=== PATIENT | female | born 1945 | race Caucasian/White ===

== ENCOUNTER 2022-09-29 23:06 | Emergency (ER) | payer OTHER ==
[~2022-09-29] VITALS: Ht 162.6 cm; Wt 77.3 kg
[2022-09-29] MEDS ORDERED: ONDANSETRON HCL 4 MG/2 ML VIAL IV ONE (23:30)
[2022-09-29] MEDS ORDERED: OXYCODONE W/ ACETAMINOPHEN 5/325MG TABLET PO ONE (23:30)
[2022-09-29 23:47] LABS: Basophils # (auto) 0.1 10 ^3/uL (0-0.2); Eosinophils # (auto) 0.1 10 ^3/uL (0-0.8); Eosinophils % (auto) 0.8 % (0.0-7.0); Hemoglobin 9.1 g/dL (12.2-16.2); Lymphocytes # (auto) 1.4 10 ^3/uL (0.4-5.4); Lymphocytes % (auto) 12.7 % (10.0-50.0); Monocytes # (auto) 1.2 10 ^3/uL (0-1.3)
[2022-09-29 23:48] LABS: Basophils % (auto) 0.6 % (0.0-2.0); Hematocrit 25.9 % (36.0-46.0); Mean Corpuscular Hemoglobin 32.5 pg (28.0-32.0); Mean Corpuscular Hgb Conc. 35.2 g/dL (32.0-36.0); Mean Corpuscular Volume 92.3 fL (80.0-100.0); Monocytes % (auto) 10.5 % (0.0-12.0); Neutrophils # (auto) 8.5 10 ^3/uL (1.6-8.6); Neutrophils % (auto) 75.4 % (37.0-80.0); Red Cell Distribution Width 12.8 % (11.8-14.3); White Blood Cell 11.3 10^3/uL (4.4-10.8)
[2022-09-30 00:02] LABS: Albumin 2.7 g/dL (3.4-5.0); Calcium 8.5 mg/dL (8.5-10.1); Potassium 3.7 mmol/L (3.5-5.1)
[2022-09-30 00:03] LABS: BUN/Creatinine Ratio 20.3 (10.0-20.0)
[2022-09-30 00:07] LABS: Bilirubin, Total 0.6 mg/dL (0.2-1.0); Total Protein 7.2 g/dL (6.4-8.2)
[2022-09-30] MEDS ORDERED: ONDANSETRON HCL 4 MG/2 ML VIAL IV ONE ×2 (00:30→03:15)
[2022-09-30] MEDS ORDERED: MORPHINE SULFATE 4 MG/ML SYR/VIAL IV ONE (00:30)
[2022-09-30 01:56] LABS: INR 1.02 (0.9-1.15)
[2022-09-30] MEDS ORDERED: HYDROmorphone HCL 2 MG/ML VL/or syr IV ONE (03:15)
[2022-09-30 05:53] VITALS: BP 109/58
== END 2022-09-30 06:05 | disposition home or self-care (01) ==
LOC: EDBD 23:06 → ER 23:06
DX: S73.004A Unspecified dislocation of right hip, initial encounter (principal); E86.0 Dehydration; E87.1 Hypo-osmolality and hyponatremia; R79.89 Other specified abnormal findings of blood chemistry; R06.02 Shortness of breath; W18.39XA Other fall on same level, initial encounter; Y93.89 Activity, other specified; Y92.89 Other specified places as the place of occurrence of the external cause; Y99.8 Other external cause status
CPT/HCPCS: 36415; 71045; 72170; 80053; 85025; 85610; 85730; 96374; 96375; 96376; 99285; J1170; J2270; J2405

== ENCOUNTER 2024-03-27 18:08 | Inpatient (IN) | payer OTHER, MEDICAID ==
[~2024-03-27] VITALS: Ht 165.1 cm; Wt 54.5 kg
[2024-03-27 18:24] VITALS: PULSE 100; RESP 17; O2SAT 95
[2024-03-27] MEDS: ONDANSETRON HCL 4 MG/2 ML VIAL IV ONE (18:55)
[2024-03-27] MEDS: MORPHINE SULFATE 4 MG/ML SYR/VIAL IV ONE ×2 (18:55→21:17)
[2024-03-27] MEDS: SODIUM CHLORIDE 0.9% 1,000 ML IV ONE ×2 (18:55→22:20)
[2024-03-27 19:19] LABS: Basophils # (auto) 0 10 ^3/uL (0-0.2); Basophils % (auto) 0.2 % (0.0-2.0); Eosinophils # (auto) 0 10 ^3/uL (0-0.8); Eosinophils % (auto) 0.6 % (0.0-7.0); Hematocrit 33.4 % (36.0-46.0); Hemoglobin 11.3 g/dL (12.2-16.2); Lymphocytes # (auto) 1.2 10 ^3/uL (0.4-5.4); Lymphocytes % (auto) 19.1 % (10.0-50.0); Mean Corpuscular Hemoglobin 33.3 pg (28.0-32.0); Mean Corpuscular Hgb Conc. 33.9 g/dL (32.0-36.0); Mean Corpuscular Volume 98.3 fL (80.0-100.0); Monocytes # (auto) 0.8 10 ^3/uL (0-1.3); Monocytes % (auto) 13.1 % (0.0-12.0); Neutrophils # (auto) 4.2 10 ^3/uL (1.6-8.6); Platelet Count (auto) 240 10^3/uL (140-450); Red Blood Cells 3.39 10^6/uL (4.0-5.20); White Blood Cell 6.3 10^3/uL (4.4-10.8)
[2024-03-27 19:27] LABS: Chloride 107 mmol/L (98-107); Potassium 3.8 mmol/L (3.5-5.1); Sodium 138 mmol/L (136-145)
[2024-03-27 19:28] LABS: Anion Gap 4 (5-15); Calcium 8.2 mg/dL (8.7-10.4); Carbon Dioxide 27 mmol/L (20-30)
[2024-03-27 19:33] LABS: BUN/Creatinine Ratio 21.6 (10.0-20.0); Blood Urea Nitrogen 16 mg/dL (9-23); Glucose 94 mg/dL (74-106)
[2024-03-27] MEDS: PROPOFOL 10 MG/ML 20 ML IV ONE ×2 (21:32→21:55)
[2024-03-28] MEDS: MORPHINE SULFATE 4 MG/ML SYR/VIAL IV ONE (00:38)
[2024-03-28] MEDS: LORazepam 2MG/ML-1ML VIAL IV ONE ×2 (02:59→23:21)
[2024-03-28] MEDS ORDERED: ONDANSETRON HCL 4 MG/2 ML VIAL IV PRN (04:30)
[2024-03-28] MEDS ORDERED: DOCUSATE SOD 100 MG CAP PO PRN (04:30)
[2024-03-28] MEDS ORDERED: MORPHINE SULFATE INJ 2 MG/ml SYRG IV PRN (04:30)
[2024-03-28] MEDS ORDERED: diphenhdrAMINE HCL 50 MG/1 ML VL IV PRN (04:30)
[2024-03-28] MEDS ORDERED: NITROGLYCERIN 0.4 MG SL TAB SL PRN (04:30)
[2024-03-28] MEDS ORDERED: ACETAMINOPHEN 325 MG TAB PO PRN (04:30)
[2024-03-28] MEDS: SODIUM CHLORIDE 0.9% 1,000 ML IV SCH (05:04)
[2024-03-28 05:19] LABS: Basophils # (auto) 0 10 ^3/uL (0-0.2); Basophils % (auto) 0.4 % (0.0-2.0); Eosinophils # (auto) 0 10 ^3/uL (0-0.8); Eosinophils % (auto) 0.7 % (0.0-7.0); Hemoglobin 11.1 g/dL (12.2-16.2); Lymphocytes % (auto) 18.9 % (10.0-50.0); Mean Corpuscular Hemoglobin 33.7 pg (28.0-32.0); Mean Corpuscular Hgb Conc. 34.7 g/dL (32.0-36.0); Mean Corpuscular Volume 97.1 fL (80.0-100.0); Monocytes # (auto) 0.7 10 ^3/uL (0-1.3); Monocytes % (auto) 12.3 % (0.0-12.0); Neutrophils # (auto) 3.8 10 ^3/uL (1.6-8.6); Neutrophils % (auto) 67.7 % (37.0-80.0); Platelet Count (auto) 205 10^3/uL (140-450); Red Blood Cells 3.29 10^6/uL (4.0-5.20); Red Cell Distribution Width 12.9 % (11.8-14.3); White Blood Cell 5.6 10^3/uL (4.4-10.8)
[2024-03-28 05:37] LABS: Alanine Aminotransferase 15 U/L (7-40); Albumin 3.5 g/dL (3.2-4.8); Alkaline Phosphatase 73 U/L (46-116); Anion Gap 4 (5-15); Aspartate Aminotransferase 38 U/L (13-40); BUN/Creatinine Ratio 20.3 (10.0-20.0); Bilirubin, Total 0.8 mg/dL (0.2-1.0); Blood Urea Nitrogen 13 mg/dL (9-23); Calcium 8.6 mg/dL (8.7-10.4); Carbon Dioxide 26 mmol/L (20-30); Chloride 107 mmol/L (98-107); Glucose 111 mg/dL (74-106); Potassium 3.8 mmol/L (3.5-5.1); Sodium 137 mmol/L (136-145)
[2024-03-28 05:38] LABS: Total Protein 5.9 g/dL (5.7-8.2)
[2024-03-28 08:01] VITALS: BP 99/60; PULSE 98; RESP 16; TEMP 99.9; O2SAT 94
[2024-03-28] MEDS: FAMOTIDINE (10MG/ML) 2ML VL IV SCH (09:44)
[2024-03-28] MEDS: ENOXAPARIN SOD 40 MG/0.4 ML SYRINGE SC SCH (09:44)
[2024-03-28] MEDS: MORPHINE SULFATE INJ 2 MG/ml SYRG IV PRN (12:02)
[2024-03-28 13:00] VITALS: BP 104/58; PULSE 97; RESP 14; TEMP 98.2; O2SAT 99
[2024-03-28] MEDS: HYDROcodone-ACET 5/325MG TAB PO PRN (14:50)
[2024-03-28 17:00] VITALS: BP 116/71; PULSE 101; RESP 15; TEMP 98.7
[2024-03-28 18:43] LABS: Folate (Folic Acid) 11.4 ng/mL (>5.38)
[2024-03-28 20:00] VITALS: PULSE 102; RESP 18; O2SAT 96
[2024-03-28 21:00] VITALS: BP 111/52; PULSE 104; RESP 15; TEMP 98.7; O2SAT 94
[2024-03-28] MEDS: DONEPEZIL HYDROCHLORIDE 5 MG TAB PO SCH (22:00)
[2024-03-29] VITALS (7 sets, daily range): BP systolic 108–146; BP diastolic 51–87; PULSE 61–111; RESP 15–19; TEMP 97.7–98.2; O2SAT 93–96
[2024-03-29 06:07] LABS: Basophils # (auto) 0 10 ^3/uL (0-0.2); Mean Corpuscular Hemoglobin 34.6 pg (28.0-32.0); Monocytes # (auto) 0.6 10 ^3/uL (0-1.3); Neutrophils # (auto) 3.5 10 ^3/uL (1.6-8.6); Nucleated Red Blood Cells % 0.1 %
[2024-03-29 06:14] LABS: Basophils % (auto) 0.2 % (0.0-2.0); Eosinophils # (auto) 0 10 ^3/uL (0-0.8); Eosinophils % (auto) 0.9 % (0.0-7.0); Hematocrit 29.8 % (36.0-46.0); Hemoglobin 10.7 g/dL (12.2-16.2); Lymphocytes # (auto) 0.7 10 ^3/uL (0.4-5.4); Mean Corpuscular Hgb Conc. 35.8 g/dL (32.0-36.0); Mean Corpuscular Volume 96.7 fL (80.0-100.0); Monocytes % (auto) 12.1 % (0.0-12.0); Neutrophils % (auto) 71.8 % (37.0-80.0); Platelet Count (auto) 204 10^3/uL (140-450); Red Blood Cells 3.08 10^6/uL (4.0-5.20); Red Cell Distribution Width 12.6 % (11.8-14.3); White Blood Cell 4.9 10^3/uL (4.4-10.8)
[2024-03-29 06:26] LABS: INR 1.09 (0.9-1.15); Partial Thromboplastin Time 37.4 SEC (24.5-34.5); Prothrombin Time 11.5 sec (9.3-11.8)
[2024-03-29 06:27] LABS: Alanine Aminotransferase 16 U/L (7-40); Albumin 3.5 g/dL (3.2-4.8); Alkaline Phosphatase 71 U/L (46-116); Anion Gap 9 (5-15); Aspartate Aminotransferase 37 U/L (13-40); BUN/Creatinine Ratio 14.3 (10.0-20.0); Blood Urea Nitrogen 9 mg/dL (9-23); Calcium 8.8 mg/dL (8.7-10.4); Carbon Dioxide 24 mmol/L (20-30); Chloride 104 mmol/L (98-107); Glucose 85 mg/dL (74-106); Potassium 3.2 mmol/L (3.5-5.1); Sodium 137 mmol/L (136-145)
[2024-03-29 06:28] LABS: Total Protein 5.9 g/dL (5.7-8.2)
[2024-03-29] MEDS: POTASSIUM CHL 20 Meq TABLET PO ONE (16:18)
[2024-03-29 18:23] LABS: Urine Bacteria None Seen /hpf (None Seen)
[2024-03-29 18:34] LABS: Urine Blood 1+ /uL (Negative); Urine Clarity Clear (Clear); Urine Color Light-Yellow (Yellow); Urine Protein, UAD TRACE (Negative); Urine Specific Gravity 1.012 (1.001-1.035); Urine Urobilinogen Normal (Negative); Urine WBC 1 /hpf (0 - 5); Urine pH 5.5 (5.0-9.0)
[2024-03-29] MEDS ORDERED: OXY5T GT (22:22)
[2024-03-29] MEDS ORDERED: OXYC15TA77 PO (22:45)
[2024-03-29] MEDS ORDERED: DONE5TAB80 PO (22:52)
[2024-03-30] VITALS (10 sets, daily range): BP systolic 110–143; BP diastolic 60–85; PULSE 84–124; RESP 16–18; TEMP 97.7–98.6; O2SAT 92–97
[2024-03-30 05:53] LABS: Basophils # (auto) 0 10 ^3/uL (0-0.2); Eosinophils # (auto) 0.1 10 ^3/uL (0-0.8); Eosinophils % (auto) 1.6 % (0.0-7.0); Hemoglobin 10.7 g/dL (12.2-16.2); Lymphocytes # (auto) 1.1 10 ^3/uL (0.4-5.4); Platelet Count (auto) 237 10^3/uL (140-450); Red Blood Cells 3.13 10^6/uL (4.0-5.20); White Blood Cell 5.5 10^3/uL (4.4-10.8)
[2024-03-30 05:55] LABS: Basophils % (auto) 0.2 % (0.0-2.0); Hematocrit 30.1 % (36.0-46.0); Lymphocytes % (auto) 20.7 % (10.0-50.0); Mean Corpuscular Hemoglobin 34.2 pg (28.0-32.0); Mean Corpuscular Hgb Conc. 35.5 g/dL (32.0-36.0); Mean Corpuscular Volume 96.4 fL (80.0-100.0); Monocytes # (auto) 0.7 10 ^3/uL (0-1.3); Neutrophils # (auto) 3.6 10 ^3/uL (1.6-8.6); Neutrophils % (auto) 65.5 % (37.0-80.0); Red Cell Distribution Width 12.6 % (11.8-14.3)
[2024-03-30 05:58] LABS: Chloride 106 mmol/L (98-107); Potassium 3.3 mmol/L (3.5-5.1); Sodium 139 mmol/L (136-145)
[2024-03-30 05:59] LABS: Anion Gap 8 (5-15); Calcium 8.8 mg/dL (8.7-10.4); Carbon Dioxide 25 mmol/L (20-30)
[2024-03-30 06:04] LABS: BUN/Creatinine Ratio 16.7 (10.0-20.0); Blood Urea Nitrogen 10 mg/dL (9-23); Glucose 95 mg/dL (74-106)
[2024-03-30] MEDS: POTASSIUM EFFERVESENT TAB 25 MEQ PO ONE (07:00)
[2024-03-30] MEDS ORDERED: PROPOFOL 10 MG/ML 20 ML IV ONE (08:50)
[2024-03-30] MEDS ORDERED: KETAMINE 50mg/ML 1ml syringe ONE (08:50)
[2024-03-30] MEDS ORDERED: MIDAZOLAM HCL 2MG/2ML 2ml VIAL (1mg/ml) ONE (08:50)
[2024-03-30] MEDS ORDERED: GLYCOPYRROLATE 0.2 MG/ML 1ML VIAL ONE (08:50)
[2024-03-30] MEDS ORDERED: ONDANSETRON HCL 4 MG/2 ML VIAL ONE (08:50)
[2024-03-30] MEDS ORDERED: HYDROmorphone HCL 2 MG/ML VL/or syr IV PRN (09:45)
[2024-03-30] MEDS ORDERED: fentaNYL CITRATE 100 MCG/2 ML VL ONE (09:45)
[2024-03-30] MEDS ORDERED: fentaNYL CITRATE 100 MCG/2 ML VL IV PRN (09:45)
[2024-03-30] MEDS: fentaNYL CITRATE 100 MCG/2 ML VL IV ONE (09:47)
[2024-03-30] MEDS: ERGOCALCIFEROL 50,000 UNIT(1.25MG) CAP PO SCH (12:11)
[2024-03-30] MEDS: CYANOCOBALAMIN (B-12) 1000 MCG/1 ML VIAL IM ONE (12:12)
[2024-03-30] MEDS: POTASSIUM CHLORIDE 20 MEQ, LIDOCAINE 1% (LOCAL ANESTH.) 2 ML in SODIUM CHL 0.9% 100 ML IV ONE (13:29)
[2024-03-30] MEDS: VENLAFAXINE HCL 37.5MG TABLET PO ONE (13:56)
[2024-03-30] MEDS: oxyCODONE ER 20 MG TAB PO ONE (17:21)
[2024-03-31] VITALS (7 sets, daily range): BP systolic 97–126; BP diastolic 52–63; PULSE 90–94; RESP 17–18; TEMP 97.6–98.6; O2SAT 91–95
[2024-03-31] MEDS: oxyCODONE ER 10 MG TAB PO ONE (06:08)
[2024-03-31 07:01] LABS: Basophils # (auto) 0 10 ^3/uL (0-0.2); Eosinophils # (auto) 0.2 10 ^3/uL (0-0.8); Neutrophils # (auto) 2.7 10 ^3/uL (1.6-8.6); White Blood Cell 4.6 10^3/uL (4.4-10.8)
[2024-03-31 07:03] LABS: Basophils % (auto) 0.6 % (0.0-2.0); Eosinophils % (auto) 4.2 % (0.0-7.0); Hematocrit 28.7 % (36.0-46.0); Hemoglobin 9.9 g/dL (12.2-16.2); Lymphocytes # (auto) 1.2 10 ^3/uL (0.4-5.4); Lymphocytes % (auto) 25.4 % (10.0-50.0); Mean Corpuscular Hemoglobin 33.6 pg (28.0-32.0); Mean Corpuscular Hgb Conc. 34.4 g/dL (32.0-36.0); Mean Corpuscular Volume 97.6 fL (80.0-100.0); Monocytes # (auto) 0.6 10 ^3/uL (0-1.3); Monocytes % (auto) 11.9 % (0.0-12.0); Neutrophils % (auto) 57.9 % (37.0-80.0); Nucleated Red Blood Cells % 0.1 %; Platelet Count (auto) 247 10^3/uL (140-450); Red Blood Cells 2.94 10^6/uL (4.0-5.20); Red Cell Distribution Width 12.6 % (11.8-14.3)
[2024-03-31 07:14] LABS: Anion Gap 9 (5-15); Carbon Dioxide 25 mmol/L (20-30); Chloride 107 mmol/L (98-107); Potassium 3.6 mmol/L (3.5-5.1); Sodium 141 mmol/L (136-145)
[2024-03-31 07:16] LABS: Calcium 8.7 mg/dL (8.7-10.4)
[2024-03-31 07:20] LABS: BUN/Creatinine Ratio 14.1 (10.0-20.0); Blood Urea Nitrogen 9 mg/dL (9-23); Glucose 91 mg/dL (74-106)
[2024-03-31] MEDS ORDERED: VENL75CA78 PO (08:19)
[2024-03-31 08:55] LABS: Hepatitis B Surface Antigen Negative (Negative)
[2024-03-31 09:17] LABS: Hepatitis C Antibody Negative (Negative)
[2024-04-01] VITALS (8 sets, daily range): BP systolic 107–135; BP diastolic 62–78; PULSE 62–91; RESP 18–19; TEMP 97.3–98; O2SAT 91–95
[2024-04-01 07:38] LABS: Basophils # (auto) 0 10 ^3/uL (0-0.2); Basophils % (auto) 0.6 % (0.0-2.0); Eosinophils # (auto) 0.1 10 ^3/uL (0-0.8); Eosinophils % (auto) 3.3 % (0.0-7.0); Hemoglobin 10.5 g/dL (12.2-16.2); INR 1.02 (0.9-1.15); Lymphocytes # (auto) 0.8 10 ^3/uL (0.4-5.4); Lymphocytes % (auto) 18.8 % (10.0-50.0); Mean Corpuscular Hemoglobin 33.6 pg (28.0-32.0); Mean Corpuscular Hgb Conc. 34.9 g/dL (32.0-36.0); Mean Corpuscular Volume 96.3 fL (80.0-100.0); Monocytes # (auto) 0.4 10 ^3/uL (0-1.3); Monocytes % (auto) 10.3 % (0.0-12.0); Neutrophils # (auto) 2.8 10 ^3/uL (1.6-8.6); Partial Thromboplastin Time 33.4 SEC (24.5-34.5); Platelet Count (auto) 280 10^3/uL (140-450); Prothrombin Time 10.8 sec (9.3-11.8); Red Blood Cells 3.11 10^6/uL (4.0-5.20); Red Cell Distribution Width 12.5 % (11.8-14.3); White Blood Cell 4.1 10^3/uL (4.4-10.8)
[2024-04-01 07:43] LABS: Calcium 9.1 mg/dL (8.7-10.4); Chloride 104 mmol/L (98-107); Potassium 3.2 mmol/L (3.5-5.1); Sodium 141 mmol/L (136-145)
[2024-04-01 07:44] LABS: Anion Gap 9 (5-15); Carbon Dioxide 28 mmol/L (20-30)
[2024-04-01 07:49] LABS: Glucose 98 mg/dL (74-106)
[2024-04-01 07:51] LABS: BUN/Creatinine Ratio 11.9 (10.0-20.0); Blood Urea Nitrogen 7 mg/dL (9-23)
[2024-04-01] MEDS: POTASSIUM CHL 20 Meq TABLET PO ONE (08:45)
[2024-04-01] MEDS: POTASSIUM CHLORIDE 40 MEQ, LIDOCAINE 1% (LOCAL ANESTH.) 4 ML in SODIUM CHL 0.9% 250 ML IV ONE (09:32)
[2024-04-01] MEDS ORDERED: OXYCODONE W/ ACETAMINOPHEN 5/325MG TABLET PO PRN (13:45)
[2024-04-01] MEDS: OXYCODONE W/ ACETAMINOPHEN 5/325MG TABLET PO PRN (14:22)
[2024-04-01] MEDS: oxyCODONE HCL 5MG TAB PO PRN (14:22)
[2024-04-01] MEDS ORDERED: oxyCODONE ER 20 MG TAB PO ONE (22:00)
[2024-04-01] MEDS: oxyCODONE ER 20 MG TAB PO SCH (22:26)
[2024-04-02] VITALS (9 sets, daily range): BP systolic 103–136; BP diastolic 55–81; PULSE 65–104; RESP 16–20; TEMP 97.5–97.8; O2SAT 93–100
[2024-04-02] MEDS ORDERED: GABAPENTIN 300 MG CAP PO ONE (06:45)
[2024-04-02] MEDS ORDERED: CELECOXIB 100 MG CAP PO ONE (06:45)
[2024-04-02] MEDS ORDERED: ACETAMINOPHEN IV 1000 MG/100ML (10MG/ML) IV ONE (06:45)
[2024-04-02] MEDS ORDERED: LIDOCAINE 1% INJ PF 5ML AMP ONE (07:04)
[2024-04-02] MEDS ORDERED: ONDANSETRON HCL 4 MG/2 ML VIAL ONE (07:04)
[2024-04-02] MEDS ORDERED: PROPOFOL 10 MG/ML 20 ML IV ONE (07:04)
[2024-04-02] MEDS ORDERED: KETOROLAC TROMETH 30 MG/ML 1ML VIAL ONE (07:04)
[2024-04-02] MEDS ORDERED: KETAMINE 50mg/ML 1ml syringe ONE (07:04)
[2024-04-02] MEDS ORDERED: GLYCOPYRROLATE 0.2 MG/ML 1ML VIAL ONE (07:04)
[2024-04-02] MEDS ORDERED: DexAMETHasone SOD PHOS 10MG/1ML VIAL INJ ONE (07:04)
[2024-04-02] MEDS ORDERED: ceFAZolin 2 GM/D5W100ml 100 ML IV ONE (07:14)
[2024-04-02] MEDS ORDERED: SUCCINYLCHOLINE CHLORIDE 20 MG/ML 10ML VIAL IV ONE (07:47)
[2024-04-02 08:14] LABS: Anion Gap 9 (5-15); Carbon Dioxide 28 mmol/L (20-30); Chloride 104 mmol/L (98-107); Potassium 3.1 mmol/L (3.5-5.1); Sodium 141 mmol/L (136-145)
[2024-04-02 08:15] LABS: Calcium 9.1 mg/dL (8.7-10.4)
[2024-04-02 08:20] LABS: BUN/Creatinine Ratio 12.9 (10.0-20.0); Blood Urea Nitrogen 8 mg/dL (9-23); Glucose 93 mg/dL (74-106)
[2024-04-02] MEDS: LACTATED RINGER'S 1,000 ML IV SCH (10:27)
[2024-04-02] MEDS: POTASSIUM CHLORIDE 40 MEQ, LIDOCAINE 1% (LOCAL ANESTH.) 4 ML in SODIUM CHL 0.9% 250 ML IV ONE (18:08)
[2024-04-03] VITALS (8 sets, daily range): BP systolic 120–135; BP diastolic 57–80; PULSE 74–96; RESP 13–18; TEMP 97.6–98.6; O2SAT 94–97
[2024-04-03 06:54] LABS: Basophils # (auto) 0 10 ^3/uL (0-0.2); Basophils % (auto) 0.2 % (0.0-2.0); Eosinophils # (auto) 0 10 ^3/uL (0-0.8); Eosinophils % (auto) 0.1 % (0.0-7.0); Hematocrit 28.7 % (36.0-46.0); Hemoglobin 9.7 g/dL (12.2-16.2); Lymphocytes # (auto) 1.2 10 ^3/uL (0.4-5.4); Lymphocytes % (auto) 19.7 % (10.0-50.0); Mean Corpuscular Hemoglobin 32.9 pg (28.0-32.0); Mean Corpuscular Hgb Conc. 33.7 g/dL (32.0-36.0); Mean Corpuscular Volume 97.6 fL (80.0-100.0); Monocytes # (auto) 0.6 10 ^3/uL (0-1.3); Monocytes % (auto) 9.6 % (0.0-12.0); Neutrophils # (auto) 4.1 10 ^3/uL (1.6-8.6); Neutrophils % (auto) 70.4 % (37.0-80.0); Nucleated Red Blood Cells % 0.1 %; Platelet Count (auto) 339 10^3/uL (140-450); Red Blood Cells 2.94 10^6/uL (4.0-5.20); Red Cell Distribution Width 12.8 % (11.8-14.3); White Blood Cell 5.9 10^3/uL (4.4-10.8)
[2024-04-03 07:17] LABS: Anion Gap 8 (5-15); Carbon Dioxide 25 mmol/L (20-30); Chloride 107 mmol/L (98-107); Potassium 3.8 mmol/L (3.5-5.1); Sodium 140 mmol/L (136-145)
[2024-04-03 07:23] LABS: BUN/Creatinine Ratio 16.1 (10.0-20.0); Blood Urea Nitrogen 10 mg/dL (9-23); Glucose 95 mg/dL (74-106)
[2024-04-03] MEDS: CYANOCOBALAMIN (B-12) 1000 MCG/1 ML VIAL IM SCH (17:00)
[2024-04-04 00:40] VITALS: BP 134/76; PULSE 89; RESP 13; TEMP 97.8; O2SAT 96
[2024-04-04 04:36] VITALS: BP 150/75; PULSE 87; RESP 12; TEMP 97.8; O2SAT 98
[2024-04-04 07:51] LABS: Hematocrit 29.1 % (36.0-46.0); Hemoglobin 10.3 g/dL (12.2-16.2)
[2024-04-04 09:00] VITALS: BP 125/66; PULSE 90; RESP 18; TEMP 98.4; O2SAT 97
== END 2024-04-04 15:00 | disposition hospice, inpatient (51) | DRG 560 ==
LOC: ER 18:08 → EDBD 18:08 → TELE-WESTW 18:21 → TELE 03-28 04:34 → TELE-WESTW 03-28 08:12 → WEST WING 03-31 12:17
PROVIDERS: ADMIT Internal Medicine; ATTEND Internal Medicine
PROC: 0SSBXZZ Reposition Left Hip Joint, External Approach (ICD-10-PCS; 2024-03-27)
PROC: 0SSBXZZ Reposition Left Hip Joint, External Approach (ICD-10-PCS; principal; 2024-03-30 08:50)
PROC: 0SSBXZZ Reposition Left Hip Joint, External Approach (ICD-10-PCS; 2024-04-02)
DX: T84.021A Dislocation of internal left hip prosthesis, initial encounter (principal); F02.83 Dementia in other diseases classified elsewhere, unspecified severity, with mood disturbance; F32.A Depression, unspecified; D64.9 Anemia, unspecified; E87.6 Hypokalemia; E55.9 Vitamin D deficiency, unspecified; Z96.643 Presence of artificial hip joint, bilateral; E53.8 Deficiency of other specified B group vitamins; Y79.2 Prosthetic and other implants, materials and accessory orthopedic devices associated with adverse incidents; F41.9 Anxiety disorder, unspecified; G89.29 Other chronic pain; G30.9 Alzheimer's disease, unspecified; Z99.3 Dependence on wheelchair
CPT/HCPCS: 36415; 71045; 72170; 73501; 80048; 80053; 81001; 82306; 82607; 82746; 83735; 83880; 85014; 85018; 85025; 85610; 85730; 86803; 86850; 86900; 86901; 87340; 93005; 93306; 97163; A4565; G0378; J0131; J0330; J1100; J1885; J2001; J2250; J2405; J2704; J3490

== ENCOUNTER 2024-06-16 07:13 | Inpatient (IN) | payer MEDICARE, MEDICAID ==
[~2024-06-16] VITALS: Ht 165.1 cm; Wt 46.5 kg
[~2024-06-16 07:13] MED LIST: DONE5TAB80 PO; OXY5T GT; OXYC15TA77 PO; VENL75CA78 PO
[2024-06-16] MEDS: SODIUM CHLORIDE 0.9% 1,000 ML IV ONE (08:00)
--- NOTE | 2024-06-16 08:09 | ED.PDOC ---
History of Present Illness HPI Comments 78 y/o F, with a Hx of dementia, arthritis, chronic pain syndrome, and previous left-hip fracture, is BIBA for c/o left-hip pain s/p mechanical fall and injury, today. Per EMS report, patient is coming from home and was brought after daughter called, endorsing on patient having a fall, this morning, where she slid forward and landed on her buttocks after her wheelchair slipped underneath her. Patient, at time of assessment, is a poor historian and reports no recollection of events aside from her wheelchair slipping underneath her and her current chronic left-hip pain that has been exacerbated. Patient was found on scene with a blood glucose of 94 per EMS report. Patient endorses no additional symptoms at this time. 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 Chief Complaint: Fall Injury Time Seen by MD: 07:50 Primary Care Provider: LINDA Escobar Notes: Nurses Notes, Health And Safety Consultant Notes, Medications, Allergies Allergies: Coded Allergies: NO KNOWN ALLERGIES (Unverified , 03/27/24) Home Meds Reported Medications Venlafaxine Hcl (Venlafaxine Hcl Er) 75 Mg Cap, 1 CAP PO DAILY 03/31/24 Donepezil Hydrochloride (DONEPEZIL HCL) 5 Mg Tab, 5 MG PO DAILY@DINNER for 30 Days, MG 03/29/24 Oxycodone HCl (Oxycontin) 15 Mg Tab, 20 MG PO DAILY, TAB 03/29/24 Oxycodone Hcl (OXYCODONE HCL) 5 Mg Tb, 10 MG GT DAILY, TAB 03/29/24 Information Source: Patient, Emergency Med Personnel, [facility] Medical Record Mode of Arrival: EMS Severity: Moderate Timing: Hours Duration: Since onset Prehospital treatment: 12 Lead EKG, Accucheck, 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 Past Medical History PAST MEDICAL HISTORY: Anemia, Arthritis, Dementia Past Medical History (Other): chronic pain syndrome, Hx of previos left hip fracture Surgical History: Denies all surgeries OBEDIENCE TRAINER History: No Pertinent OBEDIENCE TRAINER History Family History Family History: Unknown Social History Smoker: Non-Smoker Alcohol: Denies ETOH Use Drugs: Denies Drug Use Lives In: Home, Assisted Care Other wheelchair use Musculoskeletal: reports: joint pain (left hip pain ) All Other Systems: Reviewed and Negative (negative unless otherwise stated in HPI) Physical Exam General Appearance: Moderate Distress, Thin HEENT: Normal ENT Inspection, PERRL/EOMI, NOT DONE (No facial asymmetry dry mucosa) Neck: Full Range of Motion, Non-Tender Respiratory: Lungs Clear, No Respiratory Distress, Normal Breath Sounds Cardiovascular: No Murmur, Normal Peripheral Pulses, Regular Rate/Rhythm Breast Exam: Deferred Gastrointestinal: No Organomegaly, Non Tender, No Pulsatile Mass, Normal Bowel Sounds, Soft Genitalia: Deferred Pelvic: Deferred Rectal: Deferred Extremities: Decreased range of motion, No pedal edema, Tender, Other (Left hip) Neurologic: Alert, Depressed Affect, Disoriented, No Motor Deficits Cerebellar Function: NOT DONE Reflexes: NOT DONE Skin: Dry, Normal Color, Warm Peripheral Pulses: 1+ carotid (R), 1+ carotid (L) Lymphatic: No Adenopathy Was a procedure done? Was a procedure done?: No Differential Dx Considerations may include: fracture, dislocation, contusions, bruising, musculoskeletal pain, chronic pain exacerbation X-Ray, Labs, Meds, VS Vital Signs Date Time Temp Pulse Resp B/P (MAP) Pulse Ox O2 Delivery O2 Flow Rate FiO2 06/16/24 10:07 91 14 96/66 06/16/24 09:31 77 16 95 Room Air* 0 21 06/16/24 09:24 67 16 121/65 06/16/24 09:19 67 16 95 Room Air 06/16/24 09:19 97.7 77 16 121/65 (83) 95 97.7 06/16/24 07:18 98.4 94 16 117/75 (89) 95 Lab Test 06/16/24 08:03 Range/Units White Blood Count 5.7 4.4-10.8 10^3/uL Red Blood Count 3.89 L 4.0-5.20 10^6/uL Hemoglobin 12.4 12.2-16.2 g/dL Hematocrit 36.9 36.0-46.0 % Mean Corpuscular Volume 94.8 80.0-100.0 fL Mean Corpuscular Hemoglobin 31.9 28.0-32.0 pg Mean Corpuscular Hemoglobin Concent 33.6 32.0-36.0 g/dL Red Cell Distribution Width 13.9 11.8-14.3 % Platelet Count 354 140-450 10^3/uL Mean Platelet Volume 7.1 6.9-10.8 fL Neutrophils (%) (Auto) 65.0 37.0-80.0 % Lymphocytes (%) (Auto) 21.5 10.0-50.0 % Monocytes (%) (Auto) 9.3 0.0-12.0 % Eosinophils (%) (Auto) 3.8 0.0-7.0 % Basophils (%) (Auto) 0.4 0.0-2.0 % Neutrophils # (Auto) 3.7 1.6-8.6 10 ^3/uL Lymphocytes # (Auto) 1.2 0.4-5.4 10 ^3/uL Monocytes # (Auto) 0.5 0-1.3 10 ^3/uL Eosinophils # (Auto) 0.2 0-0.8 10 ^3/uL Basophils # (Auto) 0 0-0.2 10 ^3/uL Nucleated Red Blood Cells 0.1 % Prothrombin Time 11.0 9.3-11.8 sec Prothrombin Time INR 1.04 0.9-1.15 Activated Partial Thromboplast Time 29.1 24.5-34.5 SEC Sodium Level 140 136-145 mmol/L Potassium Level 4.1 3.5-5.1 mmol/L Chloride Level 106 98-107 mmol/L Carbon Dioxide Level 29 20-31 mmol/L Anion Gap 5 5-15 Blood Urea Nitrogen 17 9-23 mg/dL Creatinine 0.80 0.550-1.02 mg/dL Glomerular Filtration Rate Calc 74 >90 mL/min BUN/Creatinine Ratio 21.3 H 10.0-20.0 Serum Glucose 108 H 74-106 mg/dL Calcium Level 10.0 8.7-10.4 mg/dL Magnesium Level 2.0 1.6-2.6 mg/dL Total Bilirubin 0.4 0.2-1.0 mg/dL Aspartate Amino Transferase (AST) 16 13-40 U/L Alanine Aminotransferase (ALT) 10 7-40 U/L Alkaline Phosphatase 119 H 46-116 U/L Troponin I High Sensitivity 3 L </=34 ng/L Total Protein 6.8 5.7-8.2 g/dL Albumin 4.0 3.2-4.8 g/dL Current Medications Medications (Trade) Dose Ordered Sig/Jerald Route Start Time Stop Time Status Last Admin Sodium Chloride 250 ml @ 250 mls/hr Q1H ONCE IV 06/16/24 08:00 06/16/24 08:59 DC 06/16/24 09:19 Morphine Sulfate 2 mg ONCE ONCE IV 06/16/24 08:00 06/16/24 08:01 DC 06/16/24 09:24 Ondansetron HCl (Zofran) 4 mg ONCE ONCE IV 06/16/24 08:00 06/16/24 08:01 DC 06/16/24 09:23 [place] [address] Ph: [phone] DIAGNOSTIC IMAGING Diagnostic Imaging Report : [id number] Signed PATIENT: SUKHDEV KHAN ACCT: [id number] UNIT: [id number] : 1945 LOC: ER ROOM / BED: / AGE / SEX: 78 / F ADM STATUS: REG ER SERVICE 0750 ORDERING PHYSICIAN: RON CLEARY MD PROCEDURE(s): PL2CT - PELVIS WO CONTRAST REASON: fall ORDER NUMBER(s): [id number], ACCESSION NUMBER(s): [id number] CLINICAL INFORMATION: 78 years old, Female; fall injury. TECHNIQUE: Axial CT images of the this were obtained without IV contrast. Coronal and sagittal reformatted images were obtained, reviewed, and stored. All CT scans at this medical facility are performed using dose modulation techniques as appropriate to a performed exam including the following: Automated exposure control was utilized; adjustment of the MA and/or KV according to patient size; and use of iterative reconstruction technique. CTDIvol = 18.23, 0.41, 0.07 mGy DLP = 650.4 mGy-cm COMPARISON: Radiographs dated 04/02/2024. FINDINGS: Motion artifact limits evaluation. Beam hardening artifact from the bilateral hip prosthesis also limits evaluation. Bilateral hip prostheses with dislocation of both hip prostheses, with the femoral head components positioned superiorly and posteriorly with respect to the acetabular cup positions. The right acetabular liner is seen adjacent to the displaced femoral head component of the prosthesis, as seen on the prior radiographs. There is deformity of the left acetabulum, likely sequela of old fracture with the acetabular cup compo nent of the left hip prosthesis eccentrically positioned, along the posterior aspect of the [place] acetabulum. There is severe thinning of the [place] right acetabulum with slight protrusion of the acetabular cup beyond the medial wall. No acute fracture visualized. Marked fatty atrophy of the right gluteal musculature and moderate fatty atrophy of the left gluteus minimus muscle. IMPRESSION: 1. Bilateral dislocated prosthesis as detailed above. 2. Chronic appearing deformity of the left acetabulum, likely sequela of fracture with eccentric positioning of the acetabular component of the left hip prosthesis. 3. No acute fracture visualized. 4. Additional findings as detailed above. ATED BY: CHAVA MCCORMACK DO DICTATED DATE/TIME: 06/16/24914 SIGNED BY: CHAVA MCCORMACK DO SIGNED DATE/TIME: 06/16/24914 CC: [place] [address] Ph: [phone] DIAGNOSTIC IMAGING Diagnostic Imaging Report : [id number] Signed PATIENT: SUKHDEV KHAN ACCT: [id number] UNIT: [id number] : 1945 LOC: ER ROOM / BED: / AGE / SEX: 78 / F ADM STATUS: REG ER SERVICE 9 ORDERING PHYSICIAN: RON CLEARY MD PROCEDURE(s): CXRP - CHEST PORTABLE REASON: fall ORDER NUMBER(s): [id number], ACCESSION NUMBER(s): [id number] CHEST RADIOGRAPH Indication: fall Technique: Single frontal view of the chest was obtained COMPARISON: XY CHEST XRAY 1 VIEW on DOS: 03/28/24, XY CHEST XRAY 1 VIEW on DOS: 09/29/22 FINDINGS: Lines and Tubes: None Lungs: Mild congestion Pleura: No effusion. No pneumothorax. Cardiomediastinal contours: Unremarkable Bones: Unremarkable IMPRESSION: Mild congestion ATED BY: CLAUDE ROUSE MD DICTATED DATE/TIME: 06/16/24903 SIGNED BY: CLAUDE ROUSE MD SIGNED DATE/TIME: 06/16/24903 CC: X-Ray, Labs, Meds, VS Comment Course in the emergency department eventful patient came in because of a fall forward and now she is complaining of left hip severe pain patient is known to have had dislocation to both ribs for a little while the right hips for maybe several years the left hips more so recently was attempted reduction was reduced but then dislocated again at this time the patient is in severe pain show there is a possibly that is she have injured her pelvis and she is unable to walk and her daughter at this time is unable to take care of her Chest x-ray is normal ekg CBC negative INR 1.04 CMP negative Troponin three Magnesium 2.0 [address] of pelvis shows dislocation superior dislocations to both hips prosthesis and an old acetabular fracture with some deformity At this time we will be admitting the patient have orthopedic evaluate and have this patient Time of 1ST Reevaluation: 08:20 Reevaluation 1ST: Unchanged Time of 2ND Reevaluation: 11:30 Reevaluation 2ND: Unchanged Patient Education/Counseling: Diagnosis, Treatment Family Education/Counseling: No Family Present Departure 1 Departure Time of Disposition: 11:32 Impression: Primary Impression: Fall at home Qualified Codes: W19.XXXA - Unspecified fall, initial encounter; Y92.009 - Unspecified place in unspecified non-institutional (private) residence as the place of occurrence of the external cause Additional Impressions: Dislocation of left hip Qualified Codes: S73.005A - Unspecified dislocation of left hip, initial encounter Hip dislocation, right Qualified Codes: S73.004D - Unspecified dislocation of right hip, subsequent encounter Alzheimer's dementia Qualified Codes: G30.9 - Alzheimer's disease, unspecified; F02.B4 - Dementia in other diseases classified elsewhere, moderate, with anxiety Generalized weakness Disposition: 09 ADMITTED INPATIENT Admit to: Tele Condition: Fair Critical Care Note Critical Care Time?: No Stability Stability form required: Yes Unstable for transfer: Telemetry monitoring, Requires medication (Requires Med for stabilization) Heart Score Heart Score: Heart Score Response (Comments) Value History Slightly Suspicious 0 EKG N/A 0 Age >65 2 Risk Factors 1 or 2 risk factors 1 Troponin Normal limit 0 Total 3 I personally scribed for RON CLEARY MD ([email or web address]) on 06/16/24 at 08:09. Electronically submitted by Joshua Todd ([email or web address]). I personally scribed for RON CLEARY MD ([email or web address]) on 06/16/24 at 10:41. Electronically submitted by Joshua Todd [email or web address]). RON CLEARY MD Jun 16, 2024 08:09
[2024-06-16 08:17] LABS: Basophils # (auto) 0 10 ^3/uL (0-0.2); Basophils % (auto) 0.4 % (0.0-2.0); Eosinophils # (auto) 0.2 10 ^3/uL (0-0.8); Eosinophils % (auto) 3.8 % (0.0-7.0); Hematocrit 36.9 % (36.0-46.0); Hemoglobin 12.4 g/dL (12.2-16.2); Lymphocytes # (auto) 1.2 10 ^3/uL (0.4-5.4); Lymphocytes % (auto) 21.5 % (10.0-50.0); Mean Corpuscular Hemoglobin 31.9 pg (28.0-32.0); Mean Corpuscular Hgb Conc. 33.6 g/dL (32.0-36.0); Mean Corpuscular Volume 94.8 fL (80.0-100.0); Monocytes # (auto) 0.5 10 ^3/uL (0-1.3); Monocytes % (auto) 9.3 % (0.0-12.0); Neutrophils # (auto) 3.7 10 ^3/uL (1.6-8.6); Nucleated Red Blood Cells % 0.1 %; Platelet Count (auto) 354 10^3/uL (140-450); Red Blood Cells 3.89 10^6/uL (4.0-5.20); Red Cell Distribution Width 13.9 % (11.8-14.3); White Blood Cell 5.7 10^3/uL (4.4-10.8)
[2024-06-16 08:34] LABS: INR 1.04 (0.9-1.15); Partial Thromboplastin Time 29.1 SEC (24.5-34.5)
[2024-06-16 08:36] LABS: Anion Gap 5 (5-15); Aspartate Aminotransferase 16 U/L (13-40); BUN/Creatinine Ratio 21.3 (10.0-20.0); Blood Urea Nitrogen 17 mg/dL (9-23); Carbon Dioxide 29 mmol/L (20-31); Chloride 106 mmol/L (98-107); Potassium 4.1 mmol/L (3.5-5.1); Sodium 140 mmol/L (136-145)
[2024-06-16 08:37] LABS: Alkaline Phosphatase 119 U/L (46-116); Bilirubin, Total 0.4 mg/dL (0.2-1.0); Glucose 108 mg/dL (74-106); Total Protein 6.8 g/dL (5.7-8.2)
[2024-06-16 08:39] LABS: Alanine Aminotransferase 10 U/L (7-40)
--- NOTE | 2024-06-16 09:06 | DVH ---
CHEST RADIOGRAPH Indication: fall Technique: Single frontal view of the chest was obtained COMPARISON: XY CHEST XRAY 1 VIEW on DOS: 03/28/24, XY CHEST XRAY 1 VIEW on DOS: 09/29/22 FINDINGS: Lines and Tubes: None Lungs: Mild congestion Pleura: No effusion. No pneumothorax. Cardiomediastinal contours: Unremarkable Bones: Unremarkable IMPRESSION: Mild congestion
--- NOTE | 2024-06-16 09:17 | DVH ---
CLINICAL INFORMATION: 78 years old, Female; fall injury. TECHNIQUE: Axial CT images of the this were obtained without IV contrast. Coronal and sagittal reform atted images were obtained, reviewed, and stored. All CT scans at this medical facility are perfor med using dose modulation techniques as appropriate to a performed exam including the following: Auto mated exposure control was utilized; adjustment of the MA and/or KV according to patient size; and us e of iterative reconstruction technique. CTDIvol = 18.23, 0.41, 0.07 mGy DLP = 650.4 mGy-cm COMPARISON: Radiographs dated 04/02/2024. FINDINGS: Motion artifact limits evaluation. Beam hardening artifact from the bilateral hip prosthesi s also limits evaluation. Bilateral hip prostheses with dislocation of both hip prostheses, with the femoral head components positioned superiorly and posteriorly with respect to the acetabular cup posi tions. The right acetabular liner is seen adjacent to the displaced femoral head component of the pro sthesis, as seen on the prior radiographs. There is deformity of the left acetabulum, likely sequela of old fracture with the acetabular cup component of the left hip prosthesis eccentrically positioned , along the posterior aspect of the [place] acetabulum. There is severe thinning of the [place] right a cetabulum with slight protrusion of the acetabular cup beyond the medial wall. No acute fracture visu alized. Marked fatty atrophy of the right gluteal musculature and moderate fatty atrophy of the left gluteus minimus muscle. IMPRESSION: 1. Bilateral dislocated prosthesis as detailed above. 2. Chronic appearing deformity of the left acetabulum, likely sequela of fracture with eccentric posi tioning of the acetabular component of the left hip prosthesis. 3. No acute fracture visualized. 4. Additional findings as detailed above.
[2024-06-16] MEDS: SODIUM CHLORIDE 0.9% 250 ML IV ONE (09:19)
[2024-06-16] MEDS: ONDANSETRON HCL 4 MG/2 ML VIAL IV ONE (09:23)
[2024-06-16] MEDS: MORPHINE SULFATE INJ 2 MG/ml SYRG IV ONE (09:24)
[2024-06-16 09:31] VITALS: PULSE 77; RESP 16; O2SAT 95
[2024-06-16] MEDS: SODIUM CHLORIDE 0.9% 1,000 ML IV SCH (11:45)
[2024-06-16] MEDS ORDERED: ONDANSETRON HCL 4 MG/2 ML VIAL IV PRN (11:45)
[2024-06-16] MEDS ORDERED: MAALOX PLUS or MAALOX 30 ML PO PRN (11:45)
[2024-06-16] MEDS ORDERED: DOCUSATE SOD 100 MG CAP PO PRN (11:45)
--- NOTE | 2024-06-16 12:04 | DVHHP2 ---
History of Present Illness Reason for Visit: Hip pain History of Present Illness 78-year-old patient with a past medical history of dementia, arthritis, and chronic pain syndrome comes to the ED for evaluation status post mechanical fall patient had a previous mechanical fall which ended in a left hip fracture on evaluation today the patient had a slip and fall mechanically landed on her butt falling from her wheelchair patient on initial assessment based on dementia is not able to give a full history patient does not appear to be any acute distress however is having lots of intractable pain do a previous history of a fall as of now patient was recommended for further evaluation and management on inpatient basis Cardiovascular: HTN [employer]: Dementia Review of Systems Constitutional: Yes: Weakness; No: Fever, Chills, Sweats, Malaise, Other Eyes: No: Pain, Vision change, Conjunctivae inflammation, Eyelid inflammation, Other, Redness ENT: No: Ear pain, Ear discharge, Nose pain, Nose discharge, Nose congestion, Mouth pain, Mouth swelling, Throat pain, Throat swelling, Other Respiratory: No: Cough, Dry, Shortness of breath, SOB with excertion, Wheezing, Hemoptysis, Pleuritic Pain, Sputum, Wheezing, Other Cardiovascular: No: Chest Pain, Palpitations, Orthopnea, Paroxysmal Noc. Dyspn ea, Edema, Lt Headedness, Other Gastrointestinal: No: Nausea, Vomiting, Abdominal Pain, Diarrhea, Constipation, Melena, Hematochezia, Other Genitourinary: No Dysuria, No Frequency, No Incontinence, No Hematuria, No Retention, No Other Musculoskeletal: leg pain; No: other, neck pain, shoulder pain, arm pain, back pain, hand pain, foot pain Skin: No: Rash, Lesions, Jaundice, Bruising, Other Neurological: Weakness, Incoordination, Confusion; No: Numbness, Change in speech, Seizures, Other Allergies: Coded Allergies: NO KNOWN ALLERGIES (Unverified , 03/27/24) Exam Vital Signs Vital Signs Date Time Temp Pulse Resp B/P (MAP) Pulse Ox O2 Delivery O2 Flow Rate FiO2 06/16/24 10:07 91 14 96/66 06/16/24 09:31 95 Room Air* 0 21 06/16/24 09:19 97.7 97.7 General Appearance: Alert, Oriented X3 Cardiovascular: Regular rate, Normal S1, Normal S2 Abdominal: Normal bowel sounds Extremities: No clubbing, No cyanosis, No edema Skin: No breakdown Neuro: Normal gait ( hip dislocations), Normal speech Labs/Xrays Labs Test 06/16/24 08:03 Range/Units White Blood Count 5.7 4.4-10.8 10^3/uL Red Blood Count 3.89 L 4.0-5.20 10^6/uL Hemoglobin 12.4 12.2-16.2 g/dL Hematocrit 36.9 36.0-46.0 % Mean Corpuscular Volume 94.8 80.0-100.0 fL Mean Corpuscular Hemoglobin 31.9 28.0-32.0 pg Mean Corpuscular Hemoglobin Concent 33.6 32.0-36.0 g/dL Red Cell Distribution Width 13.9 11.8-14.3 % Platelet Count 354 140-450 10^3/uL Mean Platelet Volume 7.1 6.9-10.8 fL Neutrophils (%) (Auto) 65.0 37.0-80.0 % Lymphocytes (%) (Auto) 21.5 10.0-50.0 % Monocytes (%) (Auto) 9.3 0.0-12.0 % Eosinophils (%) (Auto) 3.8 0.0-7.0 % Basophils (%) (Auto) 0.4 0.0-2.0 % Neutrophils # (Auto) 3.7 1.6-8.6 10 ^3/uL Lymphocytes # (Auto) 1.2 0.4-5.4 10 ^3/uL Monocytes # (Auto) 0.5 0-1.3 10 ^3/uL Eosinophils # (Auto) 0.2 0-0.8 10 ^3/uL Basophils # (Auto) 0 0-0.2 10 ^3/uL Nucleated Red Blood Cells 0.1 % Prothrombin Time 11.0 9.3-11.8 sec Prothrombin Time INR 1.04 0.9-1.15 Activated Partial Thromboplast Time 29.1 24.5-34.5 SEC Sodium Level 140 136-145 mmol/L Potassium Level 4.1 3.5-5.1 mmol/L Chloride Level 106 98-107 mmol/L Carbon Dioxide Level 29 20-31 mmol/L Anion Gap 5 5-15 Blood Urea Nitrogen 17 9-23 mg/dL Creatinine 0.80 0.550-1.02 mg/dL Glomerular Filtration Rate Calc 74 >90 mL/min BUN/Creatinine Ratio 21.3 H 10.0-20.0 Serum Glucose 108 H 74-106 mg/dL Calcium Level 10.0 8.7-10.4 mg/dL Magnesium Level 2.0 1.6-2.6 mg/dL Total Bilirubin 0.4 0.2-1.0 mg/dL Aspartate Amino Transferase (AST) 16 13-40 U/L Alanine Aminotransferase (ALT) 10 7-40 U/L Alkaline Phosphatase 119 H 46-116 U/L Troponin I High Sensitivity 3 L </=34 ng/L Total Protein 6.8 5.7-8.2 g/dL Albumin 4.0 3.2-4.8 g/dL Assessment/Plan Assessment/Plan Admit to [facility] Dislocation of the left hip prosthesis Possible dislocation of the right hip as well General weakness and inability to ambulate P.r.n. medications for management of pain Evaluation of UTI UA pending Ortho evaluation required Plan for continued pain management An evaluation by PT Plan discussed with: Patient My Orders Orders - AYLA BECKMAN MD Procedure Category Date Status Time * Orthopedic Consult CONS 06/16/24 Transmitted 11:41 Admit ADMIT 06/16/24 Transmitted 11:41 Code Status CODE 06/16/24 Transmitted 11:41 Vital Signs [facility] 06/16/24 Transmitted 11:41 Review Orders With JEANINE 06/16/24 Transmitted Adm. 11:41 Regular Diet DIET 06/16/24 Transmitted Lunch Sodium Chloride 0.9% PHA 06/16/24 Transmitted 11:45 Alum & Mag PHA 06/16/24 Transmitted Hydrox-Simethicone 11:45 Docusate Sodium PHA 06/16/24 Transmitted Capsule (Colace 11:45 Acetaminophen Tablet PHA 06/16/24 Transmitted (Tylenol Tablet) 11:45 Notify Md Of Changes [facility] 06/16/24 Transmitted From Base 11:41 Advance Directive [facility] 06/16/24 Transmitted 11:41 Basic Metabolic Panel LAB 06/17/24 Verified 04:00 Urinalysis LAB 06/16/24 Transmitted 11:41 Complete Blood Count LAB 06/17/24 Verified 04:00 Patient Condition ORDERS 06/16/24 Transmitted 11:41 Allergies JEANINE 06/16/24 Transmitted 11:41 Hydrocodone-Acet PHA 06/16/24 Transmitted 5/325mg Tab ([place] 11:45 Ondansetron Hcl PHA 06/16/24 Transmitted (Zofran) 11:45 Morphine 2mg Iv Q4hprn PHA 06/16/24 Transmitted 11:45 Notify Md Of Changes JEANINE 06/16/24 Transmitted From Base 11:41 Oxygen By Nasal RT 06/16/24 Transmitted Cannula 11:41 Problem List: (1) Fall at home (2) Hip dislocation, right (3) Generalized weakness (4) Hip dislocation, left (5) Right hip pain Date of Service: Jun 16, 2024 Billing Provider: AYLA BECKMAN MD Common Visit Codes: [id number] INP/OBS CARE (HIGH) AYLA BECKMAN MD Jun 16, 2024 12:04
[2024-06-16 13:45] VITALS: PULSE 88; RESP 15; O2SAT 97
[2024-06-16 14:30] LABS: Urine Bacteria None Seen /hpf (None Seen)
--- NOTE | 2024-06-16 14:48 | ECG ---
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
[2024-06-16 14:58] LABS: Urine Blood 1+ /uL (Negative); Urine Clarity Clear (Clear); Urine Color Yellow (Yellow); Urine Mucus FEW (None Seen); Urine Protein, UAD Negative (Negative); Urine Specific Gravity 1.022 (1.001-1.035); Urine Urobilinogen Normal (Negative); Urine WBC 2 /hpf (0 - 5)
[2024-06-16] MEDS: HYDROcodone-ACET 5/325MG TAB PO PRN (15:20)
[2024-06-16] MEDS: MORPHINE SULFATE INJ 2 MG/ml SYRG IV PRN (17:05)
[2024-06-16 18:43] VITALS: BP_SYST 108; BP_SYST 117; BP_DIAS 59; BP_DIAS 60; PULSE 87; RESP 14; RESP 16; TEMP 97.8; TEMP 98; O2SAT 93; O2SAT 94
[2024-06-16 18:57] VITALS: RESP 16; O2SAT 94
[2024-06-16] MEDS ORDERED: PERCOT PO (19:47)
[2024-06-16] MEDS ORDERED: TRAZ1TAB12 PO (20:19)
[2024-06-16] MEDS ORDERED: BACL10TA PO (20:19)
[2024-06-16] MEDS ORDERED: INFLUENZA TRIVALENT 2024-2025 0.5 ML INJ IM ONE (20:30)
[2024-06-16 21:00] VITALS: BP 116/65; PULSE 91; RESP 16; TEMP 97.8; O2SAT 95
[2024-06-16] MEDS: MELATONIN 5 MG TAB PO ONE (23:06)
[2024-06-17] VITALS (7 sets, daily range): BP systolic 95–124; BP diastolic 47–63; PULSE 69–97; RESP 15–19; TEMP 97.5–97.9; O2SAT 92–97
[2024-06-17 07:19] LABS: Basophils # (auto) 0 10 ^3/uL (0-0.2); Basophils % (auto) 0.3 % (0.0-2.0); Eosinophils # (auto) 0.3 10 ^3/uL (0-0.8); Eosinophils % (auto) 5.6 % (0.0-7.0); Hematocrit 33.4 % (36.0-46.0); Hemoglobin 11.5 g/dL (12.2-16.2); Lymphocytes # (auto) 1.3 10 ^3/uL (0.4-5.4); Mean Corpuscular Hemoglobin 32.1 pg (28.0-32.0); Mean Corpuscular Hgb Conc. 34.4 g/dL (32.0-36.0); Mean Corpuscular Volume 93.4 fL (80.0-100.0); Monocytes # (auto) 0.6 10 ^3/uL (0-1.3); Monocytes % (auto) 11.4 % (0.0-12.0); Neutrophils % (auto) 57.7 % (37.0-80.0); Platelet Count (auto) 301 10^3/uL (140-450); Red Blood Cells 3.57 10^6/uL (4.0-5.20); White Blood Cell 5.2 10^3/uL (4.4-10.8)
[2024-06-17 07:30] LABS: Chloride 105 mmol/L (98-107); Potassium 4.3 mmol/L (3.5-5.1); Sodium 140 mmol/L (136-145)
[2024-06-17 07:31] LABS: Anion Gap 5 (5-15); Carbon Dioxide 30 mmol/L (20-31)
[2024-06-17 07:32] LABS: Calcium 9.3 mg/dL (8.7-10.4)
[2024-06-17 07:37] LABS: BUN/Creatinine Ratio 17.8 (10.0-20.0); Blood Urea Nitrogen 13 mg/dL (9-23); Glucose 115 mg/dL (74-106)
--- NOTE | 2024-06-17 12:54 | DVHPN2 ---
Reviewed: Care Plan, H&P, Labs, Medications, Previous Orders, Radiology Changes from previous H/P or p: No Changes Eyes: No Pain, No Vision change, No Conjunctivae inflammation, No Eyelid inflammation, No Other, No Redness ENT: No Ear pain, No Ear discharge, No Nose pain, No Nose discharge, No Nose congestion, No Mouth pain, No Mouth swelling, No Throat pain, No Throat swelling, No Other Cardiovascular: No Chest Pain, No Palpitations, No Orthopnea, No Paroxysmal Noc. Dyspnea, No Edema, No Lt Headedness, No Other Respiratory: No Cough, No Dry, No Shortness of breath, No SOB with excertion, No Wheezing, No Hemoptysis, No Pleuritic Pain, No Sputum, No Other Gastrointestinal: No Nausea, No Vomiting, No Abdominal Pain, No Diarrhea, No Constipation, No Melena, No Hematochezia, No Other Genitourinary: No Dysuria, No Frequency, No Incontinence, No Hematuria, No Retention, No Other Musculoskeletal: No other, No neck pain, No shoulder pain, No arm pain, No back pain, No hand pain; leg pain; No foot pain Skin: No Rash, No Lesions, No Jaundice, No Bruising, No Other Objective Vitals Vital Signs Date Time Temp Pulse Resp B/P (MAP) Pulse Ox O2 Delivery O2 Flow Rate FiO2 06/17/24 12:48 97.8 85 16 106/53 (70) 92 97.8 06/17/24 08:00 Room Air* 0 21 Intake/Output Intake and Output 06/17/24 07:00 Intake Total 670 ml Balance 670 ml Intake Oral 240 ml IV Total 430 ml Medications Current Medications Medications Dose Ordered Sig/Jerald Route Start Time Stop Time Status Last Admin Dose Admin Sodium Chloride 1,000 ml @ 60 mls/hr [id number] IV 06/16/24 11:45 06/17/24 03:20 60 MLS/HR Al Hydrox/Mg Hydrox/Simethicone 30 ml Q6HP PRN PO 06/16/24 11:45 Docusate Sodium 100 mg BIDPRN PRN PO 06/16/24 11:45 Acetaminophen 650 mg Q6HP PRN PO 06/16/24 11:45 Acetaminophen/ Hydrocodone Bitart 1 tab Q4HP PRN PO 06/16/24 11:45 06/17/24 10:01 1 TAB Ondansetron HCl 4 mg Q4HP PRN IV 06/16/24 11:45 Morphine Sulfate 2 mg Q4HPRN PRN IV 06/16/24 11:45 06/17/24 12:24 2 MG Laboratory Results Laboratory Tests 06/17/24 06:31 Chemistry Test 06/17/24 06:31 Calcium Level 9.3 mg/dL (8.7-10.4) Urinalysis Test 06/16/24 14:29 Urine Color Yellow (Yellow) Urine Clarity Clear (Clear) Urine pH 5.0 (5.0-9.0) Urine Specific [place] 1.022 (1.001-1.035) Urine Protein Negative (Negative) Urine Ketones Negative (Negative) Urine Blood 1+ /uL (Negative) H Urine Nitrite Negative (Negative) Urine Bilirubin Negative (Negative) Urine Urobilinogen Normal mg/dL (Negative) Urine Leukocyte Esterase Negative /uL (Negative) Urine RBC 9 /hpf (0 - 4) Urine WBC 2 /hpf (0 - 5) Urine Squamous Epithelial Cells Few /hpf (<5) Urine Bacteria None seen /hpf (None Seen) Urine Mucus Few (None Seen) Urine Glucose Normal mg/dL (Normal) Labs and/or images reviewed: Labs reviewed by me, Image(s) reviewed by me Assessment/Plan Assessment/Plan Bilateral hip dislocation : Morphine [place] consult for Dr. Eisenberg Status post mechanical fall Generalized weakness Alzheimer dementia Chronic pain Depression Chronic anemia Recurrent falls at home Social service consult Plan discussed with: Patient Date of Service: Jun 17, 2024 Billing Provider: JULIEN SWIFT MD Common Visit Codes: [id number] INP/OBS CARE(HIGH) JULIEN SWIFT MD Jun 17, 2024 12:54
[2024-06-17] MEDS: ACETAMINOPHEN 325 MG TAB PO PRN (18:35)
[2024-06-18] VITALS (7 sets, daily range): BP systolic 102–133; BP diastolic 57–69; PULSE 97–114; RESP 16–19; TEMP 97.6–98.6; O2SAT 93–99
--- NOTE | 2024-06-18 10:24 | DVHPN2 ---
Reviewed: Care Plan, H&P, Labs, Medications, Previous Orders, Radiology Changes from previous H/P or p: No Changes Eyes: No Pain, No Vision change, No Conjunctivae inflammation, No Eyelid inflammation, No Other, No Redness ENT: No Ear pain, No Ear discharge, No Nose pain, No Nose discharge, No Nose congestion, No Mouth pain, No Mouth swelling, No Throat pain, No Throat swelling, No Other Cardiovascular: No Chest Pain, No Palpitations, No Orthopnea, No Paroxysmal Noc. Dyspnea, No Edema, No Lt Headedness, No Other Respiratory: No Cough, No Dry, No Shortness of breath, No SOB with excertion, No Wheezing, No Hemoptysis, No Pleuritic Pain, No Sputum, No Other Gastrointestinal: No Nausea, No Vomiting, No Abdominal Pain, No Diarrhea, No Constipation, No Melena, No Hematochezia, No Other Genitourinary: No Dysuria, No Frequency, No Incontinence, No Hematuria, No Retention, No Other Musculoskeletal: No other, No neck pain, No shoulder pain, No arm pain, No back pain, No hand pain; leg pain; No foot pain Skin: No Rash, No Lesions, No Jaundice, No Bruising, No Other Objective Vitals Vital Signs Date Time Temp Pulse Resp B/P (MAP) Pulse Ox O2 Delivery O2 Flow Rate FiO2 06/18/24 10:10 103 18 133/68 06/18/24 08:33 97.6 94 97.6 06/17/24 20:00 Room Air* 0 21 Intake/Output Intake and Output 06/18/24 07:00 Intake Total 1300 ml Output Total 3300 ml Balance -2000 ml Intake Oral 300 ml IV Total 1000 ml Output Urine Total 3300 ml Medications Current Medications Medications Dose Ordered Sig/Jerald Route Start Time Stop Time Status Last Admin Dose Admin Sodium Chloride 1,000 ml @ 60 mls/hr [id number] IV 06/16/24 11:45 06/17/24 21:05 60 MLS/HR Al Hydrox/Mg Hydrox/Simethicone 30 ml Q6HP PRN PO 06/16/24 11:45 Docusate Sodium 100 mg BIDPRN PRN PO 06/16/24 11:45 Acetaminophen 650 mg Q6HP PRN PO 06/16/24 11:45 06/17/24 18:35 650 MG Acetaminophen/ Hydrocodone Bitart 1 tab Q4HP PRN PO 06/16/24 11:45 06/18/24 08:19 1 TAB Ondansetron HCl 4 mg Q4HP PRN IV 06/16/24 11:45 Morphine Sulfate 2 mg Q4HPRN PRN IV 06/16/24 11:45 06/18/24 10:10 2 MG Laboratory Results Laboratory Tests 06/17/24 06:31 Urinalysis Test 06/16/24 14:29 Urine Color Yellow (Yellow) Urine Clarity Clear (Clear) Urine pH 5.0 (5.0-9.0) Urine Specific [place] 1.022 (1.001-1.035) Urine Protein Negative (Negative) Urine Ketones Negative (Negative) Urine Blood 1+ /uL (Negative) H Urine Nitrite Negative (Negative) Urine Bilirubin Negative (Negative) Urine Urobilinogen Normal mg/dL (Negative) Urine Leukocyte Esterase Negative /uL (Negative) Urine RBC 9 /hpf (0 - 4) Urine WBC 2 /hpf (0 - 5) Urine Squamous Epithelial Cells Few /hpf (<5) Urine Bacteria None seen /hpf (None Seen) Urine Mucus Few (None Seen) Urine Glucose Normal mg/dL (Normal) Labs and/or images reviewed: Labs reviewed by me, Image(s) reviewed by me Assessment/Plan Assessment/Plan Bilateral hip dislocation : Morphine [place] consult for Dr. Eisenberg pending Status post mechanical fall Generalized weakness Alzheimer dementia Chronic pain Depression Chronic anemia Recurrent falls at home Social service consult Daughter Dorothy [phone] Plan discussed with: Patient Date of Service: Jun 18, 2024 Billing Provider: JULIEN SWIFT MD Common Visit Codes: [id number] INP/OBS CARE(HIGH) JULIEN SWIFT MD Jun 18, 2024 10:24
[2024-06-18] MEDS: BACLOFEN 10 MG TAB PO SCH (14:44)
--- NOTE | 2024-06-18 16:00 | DVHPN2 ---
Date of Progress Note Date of Progress Note Date of Progress Note: 06/18/24 Date of Admission Date of Admission Date of Admission: Date of Admission: Jun 16, 2024 at 11:41 Overnight Events Overnight events Overnight Events Pt tolerating pain on POs Past Medical History Past Medical History Past Medical History Pt has had a RIGHT RAI and subsequent dislocation for several years. She then presented to [facility] on 03/28/24 with a left hip dislocation s/p RAI Dr Eisenberg attempted a closed reduction in the ER without paralysis due to lack of cardiac clearance, and was unable to reduce the left hip Dr Eisenberg handed the patient off to me after cardio clearance and I attempted a closed reduciton on 04/03/24 under general anesthesia without success I explained to the patient that [facility] two options left were, observation/ conservatice care, vs removing the proxiamal femur bilaterally Past Surgical History Past Surgical History Past Surgical History B RAI Family History Family History Family History: FH: Deysi Gehrig's disease G8 FATHER FH: cancer G8 MOTHER Allergies: Coded Allergies: NO KNOWN ALLERGIES (Unverified , 03/27/24) Home Meds Reported Medications Trazodone Hcl (Trazodone Hcl) 150 Mg Tab, 0.5 TAB PO QHSP PRN for insomnia 06/16/24 Baclofen (Baclofen) 10 Mg Tab, 1 TAB PO TID 06/16/24 Oxycodone W/ Acetaminophen (Percocet 5/325MG) 1 Tab Tb, 10 MG PO Q4HPRN, #120 TAB 06/16/24 Venlafaxine Hcl (Venlafaxine Hcl Er) 75 Mg Cap, 1 CAP PO DAILY 03/31/24 Discontinued Reported Medications Donepezil Hydrochloride (DONEPEZIL HCL) 5 Mg Tab, 5 MG PO DAILY@DINNER for 30 Days, MG 03/29/24 Oxycodone HCl (Oxycontin) 15 Mg Tab, 20 MG PO DAILY, TAB 03/29/24 Oxycodone Hcl (OXYCODONE HCL) 5 Mg Tb, 10 MG GT DAILY, TAB 03/29/24 Current Medications Current Medications Medications (Trade) Dose Ordered Sig/Jerald Route PRN Reason Start Time Stop Time Status Last Admin Baclofen (Liorisal Tablet) 10 mg Q8HR PO 06/18/24 14:00 06/18/24 14:44 Physical Examination General Examination: Last Vital sign Vital Signs Date Time Temp Pulse Resp B/P (MAP) Pulse Ox O2 Delivery O2 Flow Rate FiO2 06/18/24 12:28 98 18 115/63 06/18/24 12:14 97.6 93 97.6 06/18/24 08:10 Room Air* 0 21 General: General: No apparent distress, appears comfortable. Cooperative. HEENT: NCAT, alert oriented x4 Extremities: B hips show minimal AROM through hips Neurological Examination: Neurological Examination: Mental Status: Cranial Nerves: Motor Examination: Reflexes: Sensory: Coordination: Gait: NVI Labs: Labs: Laboratory Tests Test 06/16/24 08:03 06/16/24 14:29 06/17/24 06:31 Range/Units White Blood Count 5.7 5.2 4.4-10.8 10^3/uL Red Blood Count 3.89 L 3.57 L 4.0-5.20 10^6/uL Hemoglobin 12.4 11.5 L 12.2-16.2 g/dL Hematocrit 36.9 33.4 L 36.0-46.0 % Mean Corpuscular Volume 94.8 93.4 80.0-100.0 fL Mean Corpuscular Hemoglobin 31.9 32.1 H 28.0-32.0 pg Mean Corpuscular Hemoglobin Concent 33.6 34.4 32.0-36.0 g/dL Red Cell Distribution Width 13.9 14.0 11.8-14.3 % Platelet Count 354 301 140-450 10^3/uL Mean Platelet Volume 7.1 7.0 6.9-10.8 fL Neutrophils (%) (Auto) 65.0 57.7 37.0-80.0 % Lymphocytes (%) (Auto) 21.5 25.0 10.0-50.0 % Monocytes (%) (Auto) 9.3 11.4 0.0-12.0 % Eosinophils (%) (Auto) 3.8 5.6 0.0-7.0 % Basophils (%) (Auto) 0.4 0.3 0.0-2.0 % Neutrophils # (Auto) 3.7 3.0 1.6-8.6 10 ^3/uL Lymphocytes # (Auto) 1.2 1.3 0.4-5.4 10 ^3/uL Monocytes # (Auto) 0.5 0.6 0-1.3 10 ^3/uL Eosinophils # (Auto) 0.2 0.3 0-0.8 10 ^3/uL Basophils # (Auto) 0 0 0-0.2 10 ^3/uL Nucleated Red Blood Cells 0.1 0.0 % Prothrombin Time 11.0 9.3-11.8 sec Prothrombin Time INR 1.04 0.9-1.15 Activated Partial Thromboplast Time 29.1 24.5-34.5 SEC Sodium Level 140 140 136-145 mmol/L Potassium Level 4.1 4.3 3.5-5.1 mmol/L Chloride Level 106 105 98-107 mmol/L Carbon Dioxide Level 29 30 20-31 mmol/L Anion Gap 5 5 5-15 Blood Urea Nitrogen 17 13 9-23 mg/dL Creatinine 0.80 0.73 0.550-1.02 mg/dL Glomerular Filtration Rate Calc 74 83 >90 mL/min BUN/Creatinine Ratio 21.3 H 17.8 10.0-20.0 Serum Glucose 108 H 115 H 74-106 mg/dL Calcium Level 10.0 9.3 8.7-10.4 mg/dL Magnesium Level 2.0 1.6-2.6 mg/dL Total Bilirubin 0.4 0.2-1.0 mg/dL Aspartate Amino Transferase (AST) 16 13-40 U/L Alanine Aminotransferase (ALT) 10 7-40 U/L Alkaline Phosphatase 119 H 46-116 U/L Troponin I High Sensitivity 3 L </=34 ng/L Total Protein 6.8 5.7-8.2 g/dL Albumin 4.0 3.2-4.8 g/dL Urine Color Yellow Yellow Urine Clarity Clear Clear Urine pH 5.0 5.0-9.0 Urine Specific [place] 1.022 1.001-1.035 Urine Protein Negative Negative Urine Ketones Negative Negative Urine Blood 1+ H Negative /uL Urine Nitrite Negative Negative Urine Bilirubin Negative Negative Urine Urobilinogen Normal Negative mg/dL Urine Leukocyte Esterase Negative Negative /uL Urine RBC 9 0 - 4 /hpf Urine WBC 2 0 - 5 /hpf Urine Squamous Epithelial Cells Few <5 /hpf Urine Bacteria None seen None Seen /hpf Urine Mucus Few None Seen Urine Glucose Normal Normal mg/dL Assessment/Plan Assessment/Plan Assessment and Plan:Shelley Hernandez is a 78 year old female who presents with chronic B RAI dislocations, RIGHT for several years, LEFT since at least 04/01 Not a candidate for open reduction If patient desires resection of proximal femurs I would transfer to tertiary care Plan discussed with: Patient LEIGHA MAJANO MD Jun 18, 2024 16:00
[2024-06-19 05:00] VITALS: BP 115/40; PULSE 80; RESP 17; TEMP 97.9; O2SAT 96
[2024-06-19 08:48] VITALS: BP 113/56; PULSE 86; RESP 16; TEMP 97.7; O2SAT 96
--- NOTE | 2024-06-19 10:20 | DVHPN2 ---
Reviewed: Care Plan, H&P, Labs, Medications, Previous Orders, Radiology Changes from previous H/P or p: No Changes Eyes: No Pain, No Vision change, No Conjunctivae inflammation, No Eyelid inflammation, No Other, No Redness ENT: No Ear pain, No Ear discharge, No Nose pain, No Nose discharge, No Nose congestion, No Mouth pain, No Mouth swelling, No Throat pain, No Throat swelling, No Other Cardiovascular: No Chest Pain, No Palpitations, No Orthopnea, No Paroxysmal Noc. Dyspnea, No Edema, No Lt Headedness, No Other Respiratory: No Cough, No Dry, No Shortness of breath, No SOB with excertion, No Wheezing, No Hemoptysis, No Pleuritic Pain, No Sputum, No Other Gastrointestinal: No Nausea, No Vomiting, No Abdominal Pain, No Diarrhea, No Constipation, No Melena, No Hematochezia, No Other Genitourinary: No Dysuria, No Frequency, No Incontinence, No Hematuria, No Retention, No Other Musculoskeletal: No other, No neck pain, No shoulder pain, No arm pain, No back pain, No hand pain; leg pain; No foot pain Skin: No Rash, No Lesions, No Jaundice, No Bruising, No Other Objective Vitals Vital Signs Date Time Temp Pulse Resp B/P (MAP) Pulse Ox O2 Delivery O2 Flow Rate FiO2 06/19/24 09:40 86 16 113/56 06/19/24 08:48 97.7 96 97.7 06/18/24 20:00 Room Air* 0 21 Intake/Output Intake and Output 06/19/24 07:00 Intake Total 1090 ml Output Total 2100 ml Balance -1010 ml Intake Oral 1090 ml Output Urine Total 2100 ml Medications Current Medications Medications Dose Ordered Sig/Jerald Route Start Time Stop Time Status Last Admin Dose Admin Sodium Chloride 1,000 ml @ 60 mls/hr [id number] IV 06/16/24 11:45 06/17/24 21:05 60 MLS/HR Al Hydrox/Mg Hydrox/Simethicone 30 ml Q6HP PRN PO 06/16/24 11:45 Docusate Sodium 100 mg BIDPRN PRN PO 06/16/24 11:45 Acetaminophen 650 mg Q6HP PRN PO 06/16/24 11:45 06/17/24 18:35 650 MG Acetaminophen/ Hydrocodone Bitart 1 tab Q4HP PRN PO 06/16/24 11:45 06/19/24 09:45 1 TAB Ondansetron HCl 4 mg Q4HP PRN IV 06/16/24 11:45 Morphine Sulfate 2 mg Q4HPRN PRN IV 06/16/24 11:45 06/19/24 07:02 2 MG Baclofen 10 mg Q8HR PO 06/18/24 14:00 06/19/24 04:53 10 MG Laboratory Results Laboratory Tests 06/17/24 06:31 Urinalysis Test 06/16/24 14:29 Urine Color Yellow (Yellow) Urine Clarity Clear (Clear) Urine pH 5.0 (5.0-9.0) Urine Specific [place] 1.022 (1.001-1.035) Urine Protein Negative (Negative) Urine Ketones Negative (Negative) Urine Blood 1+ /uL (Negative) H Urine Nitrite Negative (Negative) Urine Bilirubin Negative (Negative) Urine Urobilinogen Normal mg/dL (Negative) Urine Leukocyte Esterase Negative /uL (Negative) Urine RBC 9 /hpf (0 - 4) Urine WBC 2 /hpf (0 - 5) Urine Squamous Epithelial Cells Few /hpf (<5) Urine Bacteria None seen /hpf (None Seen) Urine Mucus Few (None Seen) Urine Glucose Normal mg/dL (Normal) Labs and/or images reviewed: Labs reviewed by me, Image(s) reviewed by me Assessment/Plan Assessment/Plan Bilateral hip dislocation : Morphine [place] consult by Dr. Cruz appreciated, advised not a surgical candidate Status post mechanical fall Generalized weakness Alzheimer dementia Chronic pain Depression Chronic anemia Recurrent falls at home Social service consult Daughter Dorothy [phone] is also the caregiver With the daughter and the patient is being discharged Plan discussed with: Patient My Orders Orders - JULIEN SWIFT MD Procedure Category Date Status Time * Orthopedic Consult CONS 06/18/24 Transmitted 10:47 Baclofen Tablet PHA 06/18/24 In Process (Liorisal Tablet) 14:00 Date of Service: Jun 19, 2024 Billing Provider: JULIEN SWIFT MD Common Visit Codes: [id number] INP/OBS CARE(HIGH) JULIEN SWIFT MD Jun 19, 2024 10:20
--- NOTE | 2024-06-19 10:23 | DVHDS2 ---
Discharge Summary Date of Admission Jun 16, 2024 at 11:41 Date of Discharge: Jun 19, 2024 Admitting Diagnosis Bilateral hip pain after mechanical fall Wounds: None Labs/Diagnostic Data: Laboratory Results Test 06/17/24 06:31 06/16/24 14:29 06/16/24 08:03 White Blood Count 5.2 10^3/uL (4.4-10.8) Red Blood Count 3.57 10^6/uL (4.0-5.20) Hemoglobin 11.5 g/dL (12.2-16.2) Hematocrit 33.4 % (36.0-46.0) Mean Corpuscular Volume 93.4 fL (80.0-100.0) Mean Corpuscular Hemoglobin 32.1 pg (28.0-32.0) Mean Corpuscular Hemoglobin Concent 34.4 g/dL (32.0-36.0) Red Cell Distribution Width 14.0 % (11.8-14.3) Platelet Count 301 10^3/uL (140-450) Mean Platelet Volume 7.0 fL (6.9-10.8) Neutrophils (%) (Auto) 57.7 % (37.0-80.0) Lymphocytes (%) (Auto) 25.0 % (10.0-50.0) Monocytes (%) (Auto) 11.4 % (0.0-12.0) Eosinophils (%) (Auto) 5.6 % (0.0-7.0) Basophils (%) (Auto) 0.3 % (0.0-2.0) Neutrophils # (Auto) 3.0 10 ^3/uL (1.6-8.6) Lymphocytes # (Auto) 1.3 10 ^3/uL (0.4-5.4) Monocytes # (Auto) 0.6 10 ^3/uL (0-1.3) Eosinophils # (Auto) 0.3 10 ^3/uL (0-0.8) Basophils # (Auto) 0 10 ^3/uL (0-0.2) Nucleated Red Blood Cells 0.0 % Sodium Level 140 mmol/L (136-145) Potassium Level 4.3 mmol/L (3.5-5.1) Chloride Level 105 mmol/L (98-107) Carbon Dioxide Level 30 mmol/L (20-31) Anion Gap 5 (5-15) Blood Urea Nitrogen 13 mg/dL (9-23) Creatinine 0.73 mg/dL (0.550-1.02) Glomerular Filtration Rate Calc 83 mL/min (>90) BUN/Creatinine Ratio 17.8 (10.0-20.0) Serum Glucose 115 mg/dL (74-106) Calcium Level 9.3 mg/dL (8.7-10.4) Urine Color Yellow (Yellow) Urine Clarity Clear (Clear) Urine pH 5.0 (5.0-9.0) Urine Specific [place] 1.022 (1.001-1.035) Urine Protein Negative (Negative) Urine Ketones Negative (Negative) Urine Blood 1+ /uL (Negative) Urine Nitrite Negative (Negative) Urine Bilirubin Negative (Negative) Urine Urobilinogen Normal mg/dL (Negative) Urine Leukocyte Esterase Negative /uL (Negative) Urine RBC 9 /hpf (0 - 4) Urine WBC 2 /hpf (0 - 5) Urine Squamous Epithelial Cells Few /hpf (<5) Urine Bacteria None seen /hpf (None Seen) Urine Mucus Few (None Seen) Urine Glucose Normal mg/dL (Normal) Prothrombin Time 11.0 sec (9.3-11.8) Prothrombin Time INR 1.04 (0.9-1.15) Activated Partial Thromboplast Time 29.1 SEC (24.5-34.5) Magnesium Level 2.0 mg/dL (1.6-2.6) Total Bilirubin 0.4 mg/dL (0.2-1.0) Aspartate Amino Transferase (AST) 16 U/L (13-40) Alanine Aminotransferase (ALT) 10 U/L (7-40) Alkaline Phosphatase 119 U/L (46-116) Troponin I High Sensitivity 3 ng/L (</=34) Total Protein 6.8 g/dL (5.7-8.2) Albumin 4.0 g/dL (3.2-4.8) Other Laboratory Tests 06/17/24 06:31 Brief Hx & Hospital Course: Year-old female with Alzheimer dementia chronic pain depression chronic anemia fell at home and came in complaining of bilateral hip pain patient has history of bilateral hip arthroplasty CT showed dislocation of the bilateral prosthetic hips orthopedic consult by Dr. Nanyc brooks advised no surgical intervention patient was given pain medications and being discharged home to resume pain medications and follow up with the primary Dr. The daughter at bedside and the plan is agreeable with her. The daughter is also the caregiver Consults/Reason for consult Orthopedic Dr. Cruz Operations or Procedures CT pelvis Condition at Discharge: Poor Final Diagnosis/Problems List Bilateral hip dislocation : Morphine [place] consult by Dr. Cruz appreciated, advised not a surgical candidate Status post mechanical fall Generalized weakness Alzheimer dementia Chronic pain Depression Chronic anemia Recurrent falls at home Discharge Disposition: Home Discharge Instruct/Medications Diet: Regular Activity: Light activity Follow Up/Referral: Follow up with the primary Dr Resume all previous home meds Medications: None Patient has pain medications at home per daughter 35 (Time taken for discharge summary 35 minutes) Discharge Statement: "Patient was advised to return to the ER or call 911 if any headaches, dizziness, shortness of breath, chest pain, abdominal pain, bleeding, fevers, or worsening of medical condition. Patient was counseled about treatment plan, medications, possible side effects, patientverbalized understanding. All questions were answered to the best of my ability. This discharge took greater then 30 minutes in planning, reviewing documentation, counseling the patient, and discussing with other team members." ASSESSMENT ASSESSMENT Hospital Course Improved Assessment Bilateral hip dislocation : Morphine [place] consult by Dr. Cruz appreciated, advised not a surgical candidate Status post mechanical fall Generalized weakness Alzheimer dementia Chronic pain Depression Chronic anemia Recurrent falls at home Date of Service: Jun 19, 2024 Billing Provider: JULIEN SWIFT MD Common Visit Codes: [id number] DISCH DAY >30min JULIEN SWIFT MD Jun 19, 2024 10:23
[2024-06-19 12:31] VITALS: BP 107/59; PULSE 82; RESP 16; TEMP 97.4; O2SAT 96
[2024-06-19 16:42] VITALS: BP 110/62; PULSE 74; RESP 16; TEMP 97.8; O2SAT 97
[2024-06-19 17:02] VITALS: TEMP 36.6
--- NOTE | 2024-06-19 18:50 | DVHPN2 ---
Date of Progress Note Date of Progress Note Date of Progress Note: 06/19/24 Date of Admission Date of Admission Date of Admission: Date of Admission: Jun 16, 2024 at 11:41 Past Medical History Past Medical History Past Medical History Pt has had a RIGHT RAI and subsequent dislocation for several years. She then presented to [facility] on 03/28/24 with a left hip dislocation s/p RAI Dr Eisenberg attempted a closed reduction in the ER without paralysis due to lack of cardiac clearance, and was unable to reduce the left hip Dr Eisenberg handed the patient off to me after cardio clearance and I attempted a closed reduciton on 04/03/24 under general anesthesia without success I explained to the [facility] options left were, observation/ conservatice care, vs removing the proxiamal femur bilaterally Past Surgical History Past Surgical History Past Surgical History B RAI Family History Family History Family History: FH: Deysi Gehrig's disease G8 FATHER FH: cancer G8 MOTHER Allergies: Coded Allergies: NO KNOWN ALLERGIES (Unverified , 03/27/24) Home Meds Reported Medications Trazodone Hcl (Trazodone Hcl) 150 Mg Tab, 0.5 TAB PO QHSP PRN for insomnia 06/16/24 Baclofen (Baclofen) 10 Mg Tab, 1 TAB PO TID 06/16/24 Oxycodone W/ Acetaminophen (Percocet 5/325MG) 1 Tab Tb, 10 MG PO Q4HPRN, #120 TAB 06/16/24 Venlafaxine Hcl (Venlafaxine Hcl Er) 75 Mg Cap, 1 CAP PO DAILY 03/31/24 Discontinued Reported Medications Donepezil Hydrochloride (DONEPEZIL HCL) 5 Mg Tab, 5 MG PO DAILY@DINNER for 30 Days, MG 03/29/24 Oxycodone HCl (Oxycontin) 15 Mg Tab, 20 MG PO DAILY, TAB 03/29/24 Oxycodone Hcl (OXYCODONE HCL) 5 Mg Tb, 10 MG GT DAILY, TAB 03/29/24 Physical Examination General Examination: Last Vital sign Vital Signs Date Time Temp Pulse Resp B/P (MAP) Pulse Ox O2 Delivery O2 Flow Rate FiO2 06/19/24 17:02 36.6 06/19/24 16:42 74 16 110/62 (78) 97 06/19/24 08:10 Room Air* 0 21 General: General: No apparent distress, appears comfortable. Cooperative. Neurological Examination: Neurological Examination: Mental Status: Cranial Nerves: Motor Examination: Reflexes: Sensory: Coordination: Gait: Labs: Labs: Laboratory Tests Test 06/16/24 08:03 06/16/24 14:29 06/17/24 06:31 Range/Units White Blood Count 5.7 5.2 4.4-10.8 10^3/uL Red Blood Count 3.89 L 3.57 L 4.0-5.20 10^6/uL Hemoglobin 12.4 11.5 L 12.2-16.2 g/dL Hematocrit 36.9 33.4 L 36.0-46.0 % Mean Corpuscular Volume 94.8 93.4 80.0-100.0 fL Mean Corpuscular Hemoglobin 31.9 32.1 H 28.0-32.0 pg Mean Corpuscular Hemoglobin Concent 33.6 34.4 32.0-36.0 g/dL Red Cell Distribution Width 13.9 14.0 11.8-14.3 % Platelet Count 354 301 140-450 10^3/uL Mean Platelet Volume 7.1 7.0 6.9-10.8 fL Neutrophils (%) (Auto) 65.0 57.7 37.0-80.0 % Lymphocytes (%) (Auto) 21.5 25.0 10.0-50.0 % Monocytes (%) (Auto) 9.3 11.4 0.0-12.0 % Eosinophils (%) (Auto) 3.8 5.6 0.0-7.0 % Basophils (%) (Auto) 0.4 0.3 0.0-2.0 % Neutrophils # (Auto) 3.7 3.0 1.6-8.6 10 ^3/uL Lymphocytes # (Auto) 1.2 1.3 0.4-5.4 10 ^3/uL Monocytes # (Auto) 0.5 0.6 0-1.3 10 ^3/uL Eosinophils # (Auto) 0.2 0.3 0-0.8 10 ^3/uL Basophils # (Auto) 0 0 0-0.2 10 ^3/uL Nucleated Red Blood Cells 0.1 0.0 % Prothrombin Time 11.0 9.3-11.8 sec Prothrombin Time INR 1.04 0.9-1.15 Activated Partial Thromboplast Time 29.1 24.5-34.5 SEC Sodium Level 140 140 136-145 mmol/L Potassium Level 4.1 4.3 3.5-5.1 mmol/L Chloride Level 106 105 98-107 mmol/L Carbon Dioxide Level 29 30 20-31 mmol/L Anion Gap 5 5 5-15 Blood Urea Nitrogen 17 13 9-23 mg/dL Creatinine 0.80 0.73 0.550-1.02 mg/dL Glomerular Filtration Rate Calc 74 83 >90 mL/min BUN/Creatinine Ratio 21.3 H 17.8 10.0-20.0 Serum Glucose 108 H 115 H 74-106 mg/dL Calcium Level 10.0 9.3 8.7-10.4 mg/dL Magnesium Level 2.0 1.6-2.6 mg/dL Total Bilirubin 0.4 0.2-1.0 mg/dL Aspartate Amino Transferase (AST) 16 13-40 U/L Alanine Aminotransferase (ALT) 10 7-40 U/L Alkaline Phosphatase 119 H 46-116 U/L Troponin I High Sensitivity 3 L </=34 ng/L Total Protein 6.8 5.7-8.2 g/dL Albumin 4.0 3.2-4.8 g/dL Urine Color Yellow Yellow Urine Clarity Clear Clear Urine pH 5.0 5.0-9.0 Urine Specific [place] 1.022 1.001-1.035 Urine Protein Negative Negative Urine Ketones Negative Negative Urine Blood 1+ H Negative /uL Urine Nitrite Negative Negative Urine Bilirubin Negative Negative Urine Urobilinogen Normal Negative mg/dL Urine Leukocyte Esterase Negative Negative /uL Urine RBC 9 0 - 4 /hpf Urine WBC 2 0 - 5 /hpf Urine Squamous Epithelial Cells Few <5 /hpf Urine Bacteria None seen None Seen /hpf Urine Mucus Few None Seen Urine Glucose Normal Normal mg/dL Assessment/Plan Assessment/Plan Assessment and Plan:Shelley Hernandez is a 78 year old female who presents with bilateral RAI, dislocation, right hip several years, left hip since 04/01 options expressed to pt, observation with bed to chair transfers, vs resection of proximal femur bilaterally she has opted for observation follow ortho prn Plan discussed with: Patient LEIGHA MAJANO MD Jun 19, 2024 18:50
== END 2024-06-19 21:15 | disposition home or self-care (01) | DRG 561 ==
LOC: ER 07:13 → EDBD 07:13 → OVERFLOW 11:41 → CENTRAL 18:25 → EAST 06-17 18:15
PROVIDERS: ADMIT Hospitalist; ATTEND Family Medicine
DX: T84.021A Dislocation of internal left hip prosthesis, initial encounter (principal); G30.9 Alzheimer's disease, unspecified; F32.A Depression, unspecified; D64.9 Anemia, unspecified; G89.4 Chronic pain syndrome; T84.020A Dislocation of internal right hip prosthesis, initial encounter; I10 Essential (primary) hypertension; Y79.2 Prosthetic and other implants, materials and accessory orthopedic devices associated with adverse incidents; F02.80 Dementia in other diseases classified elsewhere, unspecified severity, without behavioral disturbance, psychotic disturbance, mood disturbance, and anxiety; Y92.009 Unspecified place in unspecified non-institutional (private) residence as the place of occurrence of the external cause
CPT/HCPCS: 36415; 71045; 72192; 80048; 80053; 81001; 83735; 84484; 85025; 85610; 85730; 93005; 96361; 96374; 96375; G0378; J2405